=== PATIENT | male | born 1970 | race Caucasian/White ===

== ENCOUNTER 2019-10-15 14:20 | Emergency (ER) | payer OTHER, SELFPAY ==
[2019-10-15 14:45] VITALS: BP 134/74; PULSE 58; RESP 15; TEMP 36.7; O2SAT 100
--- NOTE | 2019-10-15 14:53 | ED.GENADUL_ITS ---
Discharge Plan Disposition Patient Disposition: HOME Condition: Stable Discharge Details Chief Complaint: Orthopedic Clinical Impression: Foot sprain Primary Care Provider: LELO ALCALA ED Provider: Jennifer Mcwilliams Home Meds and New Rx's Prescriptions: No Action No Known Home Meds RF: 0 Discharge Instructions Instructions: Foot Sprain (ED) Additional Instructions: Rest, ice, compression, elevation. Please take Tylenol or Ibuprofen with food every 4-6 hours as needed for pain and swelling. Follow up with primary care provider in 3-5 days. Return to ED sooner if any worsening or concerns. Increase oral fluids. Wear splint for comfort. Referrals: LELO ALCALA [Primary Care Provider] - Discharge Data Discharge Date/Time-TO BE ENTERED AT DEPARTURE: 10/15/19 16:55 Medical Decision Making 49-year-old male presents to the ER with right foot pain after a paddle board accident yesterday. Patient states he jumped off a paddle board landing on sand complaining of right dorsal foot tenderness. He has small abrasion noted to the top of his foot. He has full range of motion of his knee and ankle. Decreased range of motion noted to his toes. No other injuries noted. Did not take any medications prior to arrival. X-ray ordered at this time and ibuprofen p.o. Imaging protocol: XR Right foot. Views: 3 or more views. COMPARISON: No relevant prior studies available. FINDINGS: Bones/joints: There is no evidence of acute fracture.There is no evidence of malalignment or dislocation. Soft tissues: Normal. IMPRESSION: There is no evidence of acute fracture.There is no evidence of malalignment or dislocation. Thank you for allowing us to participate in the care of your patient. Dictated and Authenticated by: Crispin Orellana MD At this time there is no evidence of fracture. Patient placed in a walking boot prior to discharge and instructed on use. Instructed on rest, ice, compression, elevation. Verbalized understanding. HPI General Mode of arrival: ambulatory . Date/Time Provider Initiated Documentation: 10/15/19 14:53 . Limitations to Documentation: no limitations . Information obtained by: patient . HPI Narrative: 49-year-old male presents to the ER with right foot pain after a paddle board accident yesterday. Patient states he jumped off a paddle board landing on sand complaining of right dorsal foot tenderness. He has small abrasion noted to the top of his foot. He has full range of motion of his knee and ankle. Decreased range of motion noted to his toes. No other injuries noted. Did not take any medications prior to arrival. Related Data Home Medications Medication Instructions Recorded Confirmed Unknown [No Known Home Meds] 10/15/19 10/15/19 Allergies Allergy/AdvReac Type Severity Reaction Status Date / Time shellfish derived Allergy Unverified 10/15/19 14:54 General Stated Complaint: Orthopedic CAROLE: 4 Review of Systems Narrative: Constitutional: Negative for weight loss, alert and oriented, well groomed, normal body habitus, appears comfortable. HEENT: Denies trauma, headaches, blurry vision, nasal discharge, sore throat, trouble swallowing. Chest: Denies chest pain, palpitations, irregular rhythm, hypertension. Respiratory: Denies Shortness of breath, cough, hemoptysis. GI: Denies abdominal pain, nausea, vomiting, diarrhea, constipation. Musculoskeletal: Complaining of right foot tenderness and swelling after possible injury while paddle boarding. There is 2 small abrasions noted to the dorsum of his right foot. He does report stiffness and swelling. [facility] Social History Smoking/Tobacco Use Status: Never Alcohol Intake: current Alcohol Intake frequency: a few times a week Drug use: Never Do you feel safe at home: Yes Do you feel safe in your relationship?: Yes Exam Narrative Exam Narrative: Constitutional: Alert and oriented x3. Appears stated age. Normal body habitus. Head: Normocephalic, no trauma. Chest: RRR, Normal S1, S2, distal pulses intact. Resp: Lungs clear to auscultation bilaterally, no wheezes, rales, or rhonchi. Musculoskeletal: Does have right foot swelling tenderness noted to the dorsal aspect. Decreased range of motion noted to his toes, does have 2 superficial abrasions noted to the dorsum of his right foot. Nontender to palpation medial and lateral malleolus or Achilles tendon. Abrasions noted to his anterior rossi and knee nontender to palpation knee no crepitus no fluid wave no deformity noted to his right knee. 5/5 strength to all four extremities. Skin: No suspicious rashes or lesions. Capillary refill less than 2 sec. Neurologic: Cranial nerves II-XII intact. Alert and oriented x 3. Hematologic/Lymphatic: No ecchymosis, no lymphadenopathy. Course Vital Signs Vital signs: Vital Signs Temperature 36.7 C 10/15/19 14:45 Pulse 58 L 10/15/19 14:45 Respiratory Rate 15 10/15/19 14:45 Blood Pressure 134/74 10/15/19 14:45 Pulse Oximetry 100 10/15/19 14:45 Temperature 36.7 C 10/15/19 14:45 Temperature Source Temporal Artery Scan 10/15/19 14:45 Pulse 58 L 10/15/19 14:45 Respiratory Rate 15 10/15/19 14:45 Respiratory Effort Non-Labored 10/15/19 14:51 Blood Pressure 134/74 10/15/19 14:45 Blood Pressure Position Sitting 10/15/19 14:45 Pulse Oximetry 100 10/15/19 14:45 Oxygen Delivery Method Room Air 10/15/19 14:45 Oxygen Flow Rate 0 10/15/19 14:45 Pain Level 3 10/15/19 14:45
[2019-10-15] MEDS: Ibuprofen 600 MG TAB PO (15:00)
--- NOTE | 2019-10-15 15:24 | DI.RAD_ITS ---
EXAM: XR FOOT RT COMPLETE CLINICAL HISTORY: Fall, yesterday, R/O fracture TECHNIQUE: COMPARISON: No exams were available for comparison FINDINGS: Three views were obtained. No fracture is seen. Mild hallux valgus deformity noted along with sligh t degenerative changes of the joints of the foot and ankle. IMPRESSION: RADIATION DOSE DELIVERED: Total DLP
--- NOTE | 2019-10-15 15:26 | DI.VRAD_ITS ---
PROCEDURE INFORMATION: Exam: XR Right Foot Complete Exam date and time: 10/15/2019 3:13 PM Age: 49 years old Clinical indication: Other: Fall yesterday, R/O fracture TECHNIQUE: Imaging protocol: XR Right foot. Views: 3 or more views. COMPARISON: No relevant prior studies available. FINDINGS: Bones/joints: There is no evidence of acute fracture.There is no evidence of malalignment or dislocation. Soft tissues: Normal. IMPRESSION: There is no evidence of acute fracture.There is no evidence of malalignment or dislocation. Dictated and Authenticated by: Crispin Orellana MD. Ordering:ARELY Rodriguez MD
== END 2019-10-15 16:55 | disposition home or self-care (01) ==
PROVIDERS: Emergency Provider Registered Nurse Emergency; PCP Family Medicine
DX: S93.601A Unspecified sprain of right foot, initial encounter (principal); S90.811A Abrasion, right foot, initial encounter; X50.9XXA Other and unspecified overexertion or strenuous movements or postures, initial encounter; Y93.18 Activity, surfing, windsurfing and boogie boarding
CPT/HCPCS: 29515; 99283; 73630; L4361